=== PATIENT | male | born 1960 | race Caucasian/White ===

== ENCOUNTER 2018-03-15 10:38 | Emergency (ER) | payer OTHER ==
[2018-03-15] MEDS ORDERED: TDAP ADULT 0.5 ML INJ (BOOSTRIX) IM ONE (10:47)
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
[2018-03-15] MEDS ORDERED: AMOXICILLIN/CLAVULANATE POT 875/125 MG TAB PO ONE (11:45)
[2018-03-15] MEDS ORDERED: SKIN ADHESIVE (DERMABOND) 1 EACH TP ONE (12:14)
[2018-03-15 12:33] VITALS: BP 132/87
== END 2018-03-15 12:34 | disposition home or self-care (01) ==
PROC: 0HQ1XZZ Repair Face Skin, External Approach (ICD-10-PCS; principal; 2018-03-15)
DX: S01.85XA Open bite of other part of head, initial encounter (principal); Z23 Encounter for immunization; W50.3XXA Accidental bite by another person, initial encounter; Y99.8 Other external cause status; Y93.67 Activity, basketball